=== PATIENT | male | born 1990 | race African-American/Black ===

== ENCOUNTER 2019-04-30 19:53 | Emergency (ER) | payer SELFPAY ==
[2019-04-30] MEDS ORDERED: KETOROLAC 30 MG/ML INJ ONE (21:31)
--- NOTE | 2019-04-30 22:03 | RAD REPORT ---
EXAM DESCRIPTION: RAD - Lumbar Spine 3 Views - 04/30/2019 9:53 pm CLINICAL HISTORY: Back pain FINDINGS: The alignment of the lumbar spine is satisfactory. No fracture or dislocation is seen.
--- NOTE | 2019-04-30 22:04 | RAD REPORT ---
EXAM DESCRIPTION: RAD - Hip Right 2 View - 04/30/2019 9:48 pm CLINICAL HISTORY: Right hip pain FINDINGS: No fracture or dislocation is seen.
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
[2019-04-30] MEDS ORDERED: predniSONE 20 MG TAB ONE (22:19)
[2019-04-30 22:30] VITALS: BP 138/76; TEMP 98.5; O2SAT 100
== END 2019-04-30 22:23 | disposition home or self-care (01) ==
LOC: ER 19:53
DX: M25.551 Pain in right hip (principal); M54.5 Low back pain; Z88.6 Allergy status to analgesic agent
CPT/HCPCS: 72100; 72170; 96372; 99283; J7512